=== PATIENT | female | born 1985 | race Caucasian/White ===

== ENCOUNTER 2023-12-11 13:22 | Emergency (ER) | payer BC ==
[2023-12-11 13:35] VITALS: BP 113/75; PULSE 86; RESP 16; TEMP 98.8; BMI 30.1
[2023-12-11] MEDS ORDERED: ACETAMINOPHEN 325 MG TABLET (FP) ONE (13:43)
[2023-12-11] MEDS: ACETAMINOPHEN 325 MG TABLET (FP) PO ONE (13:45)
== END 2023-12-11 15:40 | disposition home or self-care (01) ==
LOC: FER 13:22
DX: S60.222A Contusion of left hand, initial encounter (principal); S80.02XA Contusion of left knee, initial encounter; W18.30XA Fall on same level, unspecified, initial encounter; Y92.480 Sidewalk as the place of occurrence of the external cause
CPT/HCPCS: 73130-TC-LT-FY; 73560-TC-LT-FY; 99284-25